=== PATIENT | male | born 1945 | race Two or more races ===

== ENCOUNTER 2017-05-28 12:06 | Inpatient (IN) | payer MEDICARE ==
[~2017-05-28] VITALS: Ht 162.6 cm; Wt 72.6 kg
--- NOTE | 2017-05-28 12:40 | NUR ---
PT SENT FROM DR. [facility] FOR DELUSION AND PARANOIA PER FAMILY MEMBER'S REPORT. PT DOES NOT VERBALIZE SI BUT FAMILY REPORTS THAT HE WANTS HIS "ELIMINATED". VSS. SEEN BY FOR EVAL. FAMILY MEMBERS AT . SAFETY AND COMFORT MEASURES PROVIDED. WILL MONITOR.
[2017-05-28 12:46] LABS: HEMOGLOBIN 11.2 g/dL (13.5-17.5); RED BLOOD CELL COUNT(AUTO) 4.08 MIL/uL (4.5-6.0); WHITE BLOOD COUNT (AUTO) 7.4 K/uL (4.3-11.0)
[2017-05-28 12:47] LABS: BASOPHILS # (AUTO) 0.1 /CMM (0.0-0.2); BASOPHILS % (AUTO) 0.9 % (0.0-2.0); EOSINOPHILS # (AUTO) 0.2 /CMM (0.0-0.7); EOSINOPHILS % (AUTO) 3.1 % (0.0-6.0); HEMATOCRIT 34 % (39-51); LYMPHOCYTES # (AUTO) 2.6 /CMM (0.8-4.8); LYMPHOCYTES % (AUTO) 34.3 % (20.0-44.0); MEAN CORPUSCULAR HEMOGLOBIN 27 PG (26.0-33.0); MEAN CORPUSCULAR HGB CONC 33 g/dl (31.0-36.0); MEAN CORPUSCULAR VOLUME 83 fL (80-96); MONOCYTES # (AUTO) 0.8 /CMM (0.1-1.30); MONOCYTES % (AUTO) 10.4 % (2.0-12.0); NEUTROPHILS # (AUTO) 3.8 /CMM (1.8-8.9); NEUTROPHILS % (AUTO) 51.3 % (43.0-81.0); PLATELET COUNT (AUTO) 317 /CMM (150-450)
[2017-05-28 12:57] LABS: CALCIUM, SERUM 8.7 mg/dL (8.5-10.1); CARBON DIOXIDE 26 mmol/L (21-32); CHLORIDE 103 mmol/L (98-107); CREATININE 1.4 mg/dL (0.6-1.3); GLUCOSE 95 mg/dL (74-106); POTASSIUM 4.3 mmol/L (3.5-5.1); SODIUM SERUM 138 mmol/L (136-145); UREA NITROGEN, BLOOD 16 mg/dL (7-18)
[2017-05-28 13:03] LABS: APPEARANCE,URINE Clear (CLEAR); BILIRUBIN,URINE Negative (NEGATIVE); BLOOD, URINE Negative Ery/uL (NEGATIVE); COLOR,URINE Yellow (YELLOW); KETONES,URINE Negative (NEGATIVE); LEUKOCYTE ESTERASE ,URINE Negative (NEGATIVE); NITRITE, URINE Negative (NEGATIVE); PROTEIN,URINE Negative (NEGATIVE); UGLUCOSE Negative (NEGATIVE); UROBILINOGEN,URINE 0.2 EU/dL (0.2)
[2017-05-28 13:04] LABS: ACETAMINOPHEN < 2 ug/ml (10-30); ALANINE AMINOTRANSFERASE 18 U/L (12-78); ALBUMIN 3.2 g/dL (3.4-5.0); ALCOHOL, BLOOD < 3 mg/dL (0-0); ALKALINE PHOSPHATASE 78 U/L (46-116); ASPARTATE AMINOTRANSFERASE 19 U/L (15-37); BILIRUBIN,DIRECT 0.1 mg/dL (0.0-0.2); BILIRUBIN,TOTAL 0.3 mg/dL (0.2-1.0); TOTAL PROTEIN, SERUM 8.5 g/dL (6.4-8.2)
--- NOTE | 2017-05-28 13:27 | NUR ---
CALLED ART AUTOMATION OPERATOR
[2017-05-28] MEDS ORDERED: CLOP75TA15 PO (13:38)
[2017-05-28] MEDS ORDERED: OLAN7.5T3 PO (13:38)
[2017-05-28] MEDS ORDERED: MEMA10TA PO (13:38)
[2017-05-28] MEDS ORDERED: THIA100T70 PO (13:38)
[2017-05-28] MEDS ORDERED: METO25TA6 PO (13:38)
[2017-05-28] MEDS ORDERED: LISI-603 PO (13:38)
[2017-05-28] MEDS ORDERED: CHOL10002 PO (13:38)
[2017-05-28] MEDS ORDERED: OLAN5TAB3 PO (13:38)
--- NOTE | 2017-05-28 14:18 | NUR ---
ART, PET TEAM AT BEDSIDE FOR PSYCH EVALUATION
--- NOTE | 2017-05-28 14:21 | NUR ---
CICI ISSA AT BS FOR ARIES GOLDBERG.
--- NOTE | 2017-05-28 14:40 | NUR ---
REPORT GIVEN TO JILLIAN ROCHA FOR CONT OF CARE
--- NOTE | 2017-05-28 14:56 | NUR ---
TRANSFERRED TO FLOOR UIN STABLE CONDITION
[2017-05-28 16:00] VITALS: BP 149/74
[2017-05-28] MEDS ORDERED: MAG HYDROX/AL HYDROX/SIMETH 30 ML UDC PO PRN (16:30)
[2017-05-28] MEDS ORDERED: MAGNESIUM HYDROXIDE 30 ML UDC PO PRN (16:30)
[2017-05-28] MEDS ORDERED: ACETAMINOPHEN 325 MG TABLET PO PRN (16:30)
--- NOTE | 2017-05-28 16:43 | NUR ---
RN NOTE: ADMITTED 71 Y/O MALE, , AND ON 5150 HOLD FOR GD. ACCORDING TO FAMILY, PATIENT WAS AGITATED, AND HAVING VISUAL HALLUCINATIONS. FAMILY BROUGHT THE PATIENT TO DOCTOR GIORGI AND SHE RECOMMEND THEM BRING HIM INTO THE ER. PATIENT IS ALERT AND ORIENTED X 1. PATIENT IS CONFUSED. UNDERSTANDS GREEK, BUT DOES NOT RECIPROCATE COMMUNICATION. DR RAND WAS MADE AWARE OF ADMISSION AND GAVE ORDERS. DR HENRY MADE AWARE OF ADMISSION. VS STABLE , PATIENT'S RIGHT HAND BOOK GIVEN AND EXPLAINED TO PATIENT ,START PATIENT ON Q15 MINUTES SAFTEY CHECK. Addendum: 05/28/17 at 1650 by JILLIAN OVERTON RN PATIENT ARRIVED ON THE UNIT AT 1515.
[2017-05-28] MEDS ORDERED: DONE10TA44 PO (19:26)
--- NOTE | 2017-05-28 19:30 | NUR ---
GPS RN NOTE, RECEIVED PATIENT AWAKE AND IN BED, NO S/S OR COMPLAINTS OF PAIN AT THIS TIME. PATIENT IS DISPLAYING NO S/S OF APPARENT DISTRESS AT THIS TIME. PATIENT BREATHING IS UNLABORED WITH EQUAL RISE AND FALL OF THE CHEST. PATIENT IS ALERT AND ORIENTED X 1 ON ROOM AIR WITH A SPO2 OF 95%. PATIENT IS MEDICATION COMPLIANT, CONFUSED, DISORGANIZED, ANXIOUS, PARANOID, AND NEEDS REORIENTATION. PATIENT DENIES SUICIDE IDEATIONS AND HOMICIDAL IDEATIONS AT THIS TIME. PATIENT ASSISTED WITH TURNING AND REPOSITIONING Q2HR AND PRN FOR COMFORT AND CIRCULATION. PATIENT HAS NO NEEDS AT THIS TIME. PATIENT EDUCATED ON THE USE OF THE CALL CALDERON. PATIENT SIDE RAILS ARE UP X 2, BED IS LOCKED AND LOW, AND I WILL CONTINUE TO MONITOR THIS PATIENT Q 15 MIN WITH THE HELP OF STAFF.
--- NOTE | 2017-05-28 20:00 | NUR ---
GPS RN NOTE, PATIENT IS A NEW ADMISSION FROM DAY SHIFT BUT AND HAS NOT HAD HIS MEDICATION RECONCILIATION DONE YET. PAGED [facility] AND INFORMED DR JAYME VUONG OF MY FINDINGS. DR JAYME VUONG SAID HE WILL DO THE MEDICATION RECONCILIATION. ALL ORDERS NOTED AND CARRIED OUT WILL CONTINUE TO MONITOR THIS PATIENT.
[2017-05-28 20:14] VITALS: BP 132/86
[2017-05-28] MEDS: risperiDONE 1 MG TABLET PO SCH (21:29)
[2017-05-29 07:16] LABS: ALANINE AMINOTRANSFERASE 23 U/L (12-78); ALBUMIN 3.5 g/dL (3.4-5.0); ALKALINE PHOSPHATASE 79 U/L (46-116); ASPARTATE AMINOTRANSFERASE 18 U/L (15-37); BILIRUBIN,TOTAL 0.3 mg/dL (0.2-1.0); CALCIUM, SERUM 8.8 mg/dL (8.5-10.1); CARBON DIOXIDE 26 mmol/L (21-32); CHLORIDE 102 mmol/L (98-107); CREATININE 1.3 mg/dL (0.6-1.3); GLUCOSE 100 mg/dL (74-106); POTASSIUM 4.2 mmol/L (3.5-5.1); SODIUM SERUM 137 mmol/L (136-145); TOTAL PROTEIN, SERUM 8.8 g/dL (6.4-8.2); UREA NITROGEN, BLOOD 18 mg/dL (7-18)
[2017-05-29 07:32] LABS: CHOLESTEROL 254 mg/dL (<200); HDL CHOLESTEROL 72 mg/dL (40-60); LDL 167 mg/dL (0-99); TRIGLYCERIDES 94 mg/dL (30-150)
[2017-05-29 08:15] VITALS: BP 141/85
[2017-05-29] MEDS: CHOLECALCIFEROL 1,000 UNIT TABLET (VIT D3) PO SCH (08:20)
[2017-05-29] MEDS: CLOPIDOGREL BISULFATE 75 MG TABLET PO SCH (08:20)
[2017-05-29] MEDS: LISINOPRIL (20MG) 20 MG TABLET PO SCH ×2 (08:20→17:19)
[2017-05-29] MEDS: ESCITALOPRAM OXALATE (10 MG) 10 MG TABLET PO SCH (08:20)
[2017-05-29] MEDS: METOPROLOL TARTRATE 25 MG TABLET PO SCH ×2 (08:21→17:19)
[2017-05-29] MEDS: DIVALPROEX SODIUM 250 MG TABLET.DR PO SCH (12:51)
[2017-05-29 16:32] VITALS: BP 126/72
[2017-05-29 20:30] VITALS: BP 132/71
[2017-05-29] MEDS: risperiDONE 1 MG TABLET PO SCH (22:06)
[2017-05-30 07:41] VITALS: BP 158/98
[2017-05-30 08:30] VITALS: BP 93/58
[2017-05-30] MEDS: METOPROLOL TARTRATE 25 MG TABLET PO SCH ×2 (08:49→16:45)
[2017-05-30] MEDS: CHOLECALCIFEROL 1,000 UNIT TABLET (VIT D3) PO SCH (08:49)
[2017-05-30] MEDS: CLOPIDOGREL BISULFATE 75 MG TABLET PO SCH (08:49)
[2017-05-30] MEDS: ESCITALOPRAM OXALATE (10 MG) 10 MG TABLET PO SCH (08:49)
[2017-05-30] MEDS: LISINOPRIL (20MG) 20 MG TABLET PO SCH ×2 (08:50→16:45)
[2017-05-30] MEDS: DIVALPROEX SODIUM 250 MG TABLET.DR PO SCH (12:19)
[2017-05-30 16:00] VITALS: BP 117/64
[2017-05-30 20:00] VITALS: BP 114/69
[2017-05-30] MEDS: risperiDONE 1 MG TABLET PO SCH (21:21)
[2017-05-31 08:00] VITALS: BP 161/93
[2017-05-31] MEDS: ESCITALOPRAM OXALATE (10 MG) 10 MG TABLET PO SCH (08:18)
[2017-05-31] MEDS: CHOLECALCIFEROL 1,000 UNIT TABLET (VIT D3) PO SCH (08:18)
[2017-05-31] MEDS: METOPROLOL TARTRATE 25 MG TABLET PO SCH ×2 (08:18→17:49)
[2017-05-31] MEDS: LISINOPRIL (20MG) 20 MG TABLET PO SCH ×2 (08:18→17:49)
[2017-05-31] MEDS: CLOPIDOGREL BISULFATE 75 MG TABLET PO SCH (08:18)
[2017-05-31] MEDS: DIVALPROEX SODIUM 250 MG TABLET.DR PO SCH (13:27)
[2017-05-31 16:05] VITALS: BP 136/87
[2017-05-31 20:00] VITALS: BP 104/53
[2017-05-31] MEDS: risperiDONE 1 MG TABLET PO SCH (22:54)
[2017-06-01 08:00] VITALS: BP 146/80
[2017-06-01] MEDS: CLOPIDOGREL BISULFATE 75 MG TABLET PO SCH (08:12)
[2017-06-01] MEDS: ESCITALOPRAM OXALATE (10 MG) 10 MG TABLET PO SCH (08:12)
[2017-06-01] MEDS: CHOLECALCIFEROL 1,000 UNIT TABLET (VIT D3) PO SCH (08:12)
[2017-06-01] MEDS: METOPROLOL TARTRATE 25 MG TABLET PO SCH ×2 (08:13→17:35)
[2017-06-01] MEDS: LISINOPRIL (20MG) 20 MG TABLET PO SCH ×2 (08:13→17:35)
[2017-06-01] MEDS: DIVALPROEX SODIUM 250 MG TABLET.DR PO SCH (12:11)
[2017-06-01] MEDS: risperiDONE 0.25 MG TABLET PO SCH (12:11)
[2017-06-01 16:00] VITALS: BP 122/61
[2017-06-01] MEDS: risperiDONE 1 MG TABLET PO SCH (21:52)
[2017-06-02 08:05] VITALS: BP 140/72
[2017-06-02] MEDS: CLOPIDOGREL BISULFATE 75 MG TABLET PO SCH (08:32)
[2017-06-02] MEDS: LISINOPRIL (20MG) 20 MG TABLET PO SCH ×2 (08:33→17:00)
[2017-06-02] MEDS: METOPROLOL TARTRATE 25 MG TABLET PO SCH ×2 (08:33→17:00)
[2017-06-02] MEDS: ESCITALOPRAM OXALATE (10 MG) 10 MG TABLET PO SCH (08:33)
[2017-06-02] MEDS: CHOLECALCIFEROL 1,000 UNIT TABLET (VIT D3) PO SCH (08:34)
[2017-06-02] MEDS: risperiDONE 0.25 MG TABLET PO SCH (08:34)
[2017-06-02] MEDS: DIVALPROEX SODIUM 250 MG TABLET.DR PO SCH (12:00)
[2017-06-02] MEDS: BENZTROPINE MESYLATE (1 MG) 1 MG TABLET PO SCH ×2 (14:27→21:10)
--- NOTE | 2017-06-02 14:27 | NUR ---
[id number]: GAVE MILK OF MAGNESIA 30 ML PO DUE TO CONSTIPATION UPON PT REQUEST AND WILL CONTINUE TO MONITOR FOR EFFECTIVENESS OF MEDICATION
[2017-06-02 16:00] VITALS: BP 100/63
[2017-06-02 20:10] VITALS: BP 134/76
[2017-06-02] MEDS: risperiDONE 1 MG TABLET PO SCH (21:11)
[2017-06-03] MEDS: CHOLECALCIFEROL 1,000 UNIT TABLET (VIT D3) PO SCH (08:03)
[2017-06-03] MEDS: CLOPIDOGREL BISULFATE 75 MG TABLET PO SCH (08:03)
[2017-06-03] MEDS: ESCITALOPRAM OXALATE (10 MG) 10 MG TABLET PO SCH (08:04)
[2017-06-03] MEDS: risperiDONE 0.25 MG TABLET PO SCH (08:04)
[2017-06-03] MEDS: LISINOPRIL (20MG) 20 MG TABLET PO SCH ×2 (08:04→16:43)
[2017-06-03] MEDS: BENZTROPINE MESYLATE (1 MG) 1 MG TABLET PO SCH ×3 (08:04→21:41)
[2017-06-03] MEDS: METOPROLOL TARTRATE 25 MG TABLET PO SCH ×2 (08:04→16:42)
[2017-06-03 11:42] VITALS: BP 123/55
--- NOTE | 2017-06-03 11:43 | NUR ---
Discharge Planning: SW spoke to pts , Cara (who was visiting with her ) to revisit pts discharge plan. Cara is adamant about caring for pt at home on her own as opposed to SNF placement. Pts was thankful but stated, "As long as I am physically able to care for him I will do it." In addition, SW will follow up on 's request regarding hospital bed for the home. SW will follow up to ensure pt is properly discharged.
--- NOTE | 2017-06-03 11:57 | NUR ---
Discharge Planning: SHAR contacted [facility] to request for a hospital bed for pt upon his discharge. Fozia confirmed order was received. SHAR will follow up.
[2017-06-03] MEDS: DIVALPROEX SODIUM 250 MG TABLET.DR PO SCH (12:44)
--- NOTE | 2017-06-03 14:21 | NUR ---
Initial Discharge Note 05/31/17: [place] [address] [facility] [address]; and would like to return home upon discharge. Pt however agreed to a SNF if he needed one upon discharge. SW contacted pts Cara for collateral information. Pts stated she did not want pt placed at a SNF and asked that he be discharged home. Pts stated she would care for her at home. SW will follow up to ensure pt is safely and adequately discharged.
[2017-06-03 16:00] VITALS: BP 100/63
[2017-06-03 19:28] VITALS: BP 93/57
--- NOTE | 2017-06-03 19:30 | NUR ---
GPS RN NOTE, RECEIVED PATIENT AWAKE AND IN BED, NO S/S OR COMPLAINTS OF PAIN AT THIS TIME. PATIENT IS DISPLAYING NO S/S OF APPARENT DISTRESS AT THIS TIME. PATIENT BREATHING IS UNLABORED WITH EQUAL RISE AND FALL OF THE CHEST. PATIENT IS ALERT AND ORIENTED X 1 ON ROOM AIR WITH A SPO2 OF 93%. PATIENT IS MEDICATION COMPLIANT, CONFUSED, DISORGANIZED, RAMBLING AT TIMES, ANXIOUS, PARANOID, AND NEEDS REORIENTATION. PATIENT DENIES SUICIDE IDEATIONS AND HOMICIDAL IDEATIONS AT THIS TIME. PATIENT ASSISTED WITH TURNING AND REPOSITIONING Q2HR AND PRN FOR COMFORT AND CIRCULATION. PATIENT HAS NO NEEDS AT THIS TIME. PATIENT EDUCATED ON THE USE OF THE CALL CALDERON. PATIENT SIDE RAILS ARE UP X 2, BED IS LOCKED AND LOW, AND I WILL CONTINUE TO MONITOR THIS PATIENT Q 15 MIN WITH THE HELP OF STAFF.
[2017-06-03] MEDS: risperiDONE 1 MG TABLET PO SCH (21:41)
[2017-06-04 08:00] VITALS: BP 133/83
[2017-06-04] MEDS: CHOLECALCIFEROL 1,000 UNIT TABLET (VIT D3) PO SCH (08:33)
[2017-06-04] MEDS: ESCITALOPRAM OXALATE (10 MG) 10 MG TABLET PO SCH (08:33)
[2017-06-04] MEDS: CLOPIDOGREL BISULFATE 75 MG TABLET PO SCH (08:33)
[2017-06-04 08:34] VITALS: BP 133/83
[2017-06-04] MEDS: METOPROLOL TARTRATE 25 MG TABLET PO SCH (08:34)
[2017-06-04] MEDS: risperiDONE 0.25 MG TABLET PO SCH (08:34)
[2017-06-04] MEDS: LISINOPRIL (20MG) 20 MG TABLET PO SCH (08:34)
[2017-06-04] MEDS: BENZTROPINE MESYLATE (1 MG) 1 MG TABLET PO SCH ×2 (08:36→12:20)
--- NOTE | 2017-06-04 09:33 | NUR ---
Discharge Plan: Patient will be discharged to his residence [id number] [place] [address] [place] [address]; at 3:00 pm. Pts Cara Masters will be taking him home and caring for him. Pt has been notified and is in agreement. Pts Supervisor Inspection Room is Dr. Víctor Schroeder [address] [facility] [address] [facility] [address]; and Psychiatrist is Dr. Nath [address] [place] [address] # [phone]; . Pt has agreed to contact above named physicians to schedule a follow up appointment.
[2017-06-04] MEDS: DIVALPROEX SODIUM 250 MG TABLET.DR PO SCH (12:20)
--- NOTE | 2017-06-04 14:34 | NUR ---
Discharge Planning: SHAR contacted [facility] to follow up on yesterday's request (regarding information on progress note). SHAR send Md a reminder, informing her that pt would be discharging on today's date per psychiatric order and that order of the hospital bed was pending information needed on progress note. SHAR will follow up.
--- NOTE | 2017-06-04 15:15 | NUR ---
[id number]: PT IS 71 YEARS OLD [place] [address] [place] [address] IN STABLE CONDITION. COMPLIANT WITH MEDICATIONS, COOPERTIVE WITH TREATMENT PLANS. PT DENIES SI/HI/AVH. BEHAVIOR IMPROVED, PSYCHIATRIC TX PLANS MET, MEDICAL TX PLANS DEFERRED FPOR CONTINUAL MONITORING. EDUCATED PT ABOUT AFTRE CARE PLAN AND COPY PROVIDED. RETURNED PERSONAL BELONGNGS TO PT. MEDICATIONS RECONCILED WITH DR. FRANKS AND COKE BURNER AHMET DOUGLAS. REPORT GIVEN TO LULI CERNA FOR CONTINUNITY OF CARE. PT SIGNED DISCHARGE PAPERWORK. PT WILL FOLLOW UP WITH MEDICAL CONDENSER TESTER DR. RUPALI HORN AT [address] [facility] [address] [facility] [place] [address]; AND DR. RAND AT [address] [place] [address]. #[phone]; . CALLED ANITHA SAWYER AT [address] [place] [phone], .
--- NOTE | 2017-06-05 09:47 | NUR ---
SHAR faxed the face sheet, H&P, med Progress Note and physician's order to Janice Mccoy and fax # to order a hospital bed for pt on today's date. Pt was discharged on 06/04/17. SHAR will follow up to ensure request order was received.
== END 2017-06-04 15:15 | disposition home or self-care (01) | DRG 884 ==
LOC: ER 12:07 → UNDOADMIN 14:25 → TELE1 14:25 → ER 14:56 → GPS 15:12
PROVIDERS: ADMIT Psychiatry & Neurology Psychiatry; ATTEND Psychiatry & Neurology Psychiatry
DX: F06.2 Psychotic disorder with delusions due to known physiological condition (principal); F02.81 Dementia in other diseases classified elsewhere, unspecified severity, with behavioral disturbance; N17.0 Acute kidney failure with tubular necrosis; G93.40 Encephalopathy, unspecified; G30.9 Alzheimer's disease, unspecified; D63.8 Anemia in other chronic diseases classified elsewhere; Z86.73 Personal history of transient ischemic attack (TIA), and cerebral infarction without residual deficits; Z85.118 Personal history of other malignant neoplasm of bronchus and lung; N40.0 Benign prostatic hyperplasia without lower urinary tract symptoms; Z73.6 Limitation of activities due to disability; I10 Essential (primary) hypertension; I25.10 Atherosclerotic heart disease of native coronary artery without angina pectoris
CPT/HCPCS: 36415; 70450-TC; 71045-TC; 80048-TC; 80053-TC; 80061-TC; 80076-TC; 80305; 81000-TC; 85025-TC; 87081-TC; A4606; G0480; Z7610